=== PATIENT | female | born 1995 | race Two or more races ===

== ENCOUNTER → 2020-03-09 | Outpatient (CLI) | payer OTHER | END | disposition home or self-care (01) | LOC: PRENATAL 13:30 | PROVIDERS: ATTEND Obstetrics & Gynecology Maternal & Fetal Medicine | DX: O35.0XX1 Maternal care for (suspected) central nervous system malformation in fetus, fetus 1 (principal); O35.3XX1 Maternal care for (suspected) damage to fetus from viral disease in mother, fetus 1; O98.512 Other viral diseases complicating pregnancy, second trimester; Z36.89 Encounter for other specified antenatal screening; Z3A.19 19 weeks gestation of pregnancy ==

== ENCOUNTER 2020-07-18 07:45 | Inpatient (IN) | payer OTHER ==
[~2020-07-18] VITALS: Ht 152.4 cm; Wt 60.3 kg
[2020-07-18] MEDS ORDERED: ATABEX DHA 200200 MG PO (08:29)
[2020-07-18] MEDS ORDERED: IRON236 MG PO (08:29)
[2020-07-18] MEDS ORDERED: ATABEX OB TABL1 EACH PO (08:29)
[2020-07-24] MEDS ORDERED: CLEOCIN HCL300 MG PO (09:13)
[2020-07-24] MEDS ORDERED: DUI500 PO (09:13)
== END 2020-07-24 10:35 | disposition home or self-care (01) | DRG 806 ==
LOC: LDR 07:45 → OB/GYN 20:09
PROVIDERS: ADMIT Obstetrics & Gynecology; ATTEND Obstetrics & Gynecology
PROC: 10E0XZZ Delivery of Products of Conception, External Approach (ICD-10-PCS; principal; 2020-07-18)
PROC: 0W8NXZZ Division of Female Perineum, External Approach (ICD-10-PCS; 2020-07-18)
PROC: 3E033VJ Introduction of Other Hormone into Peripheral Vein, Percutaneous Approach (ICD-10-PCS; 2020-07-18)
PROC: 3E0P7VZ Introduction of Hormone into Female Reproductive, Via Natural or Artificial Opening (ICD-10-PCS; 2020-07-18)
PROC: 4A1HXFZ Monitoring of Products of Conception, Cardiac Rhythm, External Approach (ICD-10-PCS; 2020-07-18)
PROC: 30233N1 Transfusion of Nonautologous Red Blood Cells into Peripheral Vein, Percutaneous Approach (ICD-10-PCS; 2020-07-20)
PROC: B54NZZZ Ultrasonography of Left Upper Extremity Veins (ICD-10-PCS; 2020-07-22)
DX: O90.81 Anemia of the puerperium (principal); T80.29XA Infection following other infusion, transfusion and therapeutic injection, initial encounter; Z37.0 Single live birth; L03.114 Cellulitis of left upper limb; D64.9 Anemia, unspecified; Z3A.38 38 weeks gestation of pregnancy

== ENCOUNTER 2023-06-21 13:35 | Outpatient (CLI) | payer OTHER ==
[~2023-06-21 13:35] MED LIST: ATABEX DHA 200200 MG PO; ATABEX OB TABL1 EACH PO; CLEOCIN HCL300 MG PO; DUI500 PO; IRON236 MG PO
== END 2023-06-21 13:38 | disposition home or self-care (01) ==
LOC: PRENATAL 13:35
PROVIDERS: ATTEND Obstetrics & Gynecology Maternal & Fetal Medicine
DX: O26.849 Uterine size-date discrepancy, unspecified trimester (principal); O36.8199 Decreased fetal movements, unspecified trimester, other fetus; Z3A.32 32 weeks gestation of pregnancy